=== PATIENT | female | born 1965 | race Caucasian/White ===

== ENCOUNTER → 2018-06-06 15:43 | Outpatient (CLI) | payer BC, SELFPAY ==
--- NOTE | 2018-06-06 15:48 | MR_ITS ---
MR lumbar spine wo con, MR 3-d myelogram/MRCP HISTORY: Bilateral leg pain, RT foot numbness. PT states 2 prior back surgeries. , Lumbar disc herniation ITS.REASON: LUMBAR DISC HERNIATION ORDERING PHYSICIAN: Gela Rice PATIENT AGE: 52 years Comparison: None TECHNIQUE: Standard multiplanar multiecho sequences are performed without contrast. 3-D MIP and myelographic images are also rendered and reviewed FINDINGS: There is normal alignment. The spinal cord ends at the L1-L2 level. T12-L1, L1-L2, L2-L3, L3-L4, and L4-L5 have an unremarkable appearance. L5-S1: Degenerative disc disease with type II endplate changes with concentric bulging disc along with mild facet and ligamentum flavum hypertrophy with mild bilateral lateral recess and foraminal narrowing. No disc herniation or canal stenosis. Numerous bilateral renal cysts of varying size consistent with adult polycystic kidney disease. There is some scattered decreased T2 signal within the kidneys bilaterally could be related to some underlying hemorrhage within the cysts IMPRESSION: 1. Mild degenerative disc disease with bulging disc along with mild facet ligamentous hypertrophy and mild bilateral lateral recess and foraminal narrowing at L5-S1. No disc herniation or canal stenosis 2. Adult polycystic kidney disease
== END ==
PROVIDERS: PCP Nurse Practitioner; Visit Provider Nurse Practitioner
DX: R20.8 Other disturbances of skin sensation (principal); M51.26 Other intervertebral disc displacement, lumbar region; M51.16 Intervertebral disc disorders with radiculopathy, lumbar region
CPT/HCPCS: 72148; 76376

== ENCOUNTER → 2019-04-08 09:55 | Outpatient (CLI) | payer BC, SELFPAY ==
--- NOTE | 2019-04-08 09:59 | CA_ITS ---
PROCEDURE: 2-D M-mode and color Doppler study INDICATIONS FOR THE TEST: Chest pain COPD Heart Murmur Tobacco Smoking Palpitations FatigueX Syncope Edema HypertensionXDiabetes Mellitus Rheumatic Fever SOB SILVESTRE Obesity Hyperlipidemia Family History HD Additional History ? HEPATIC CYSTS SEEN ON SUB COSTAL VIEWS PATIENT INFORMATION HEIGHT: 64 WEIGHT:159 GENDER: Female B/P:140/80 2-D/M-MODE INTERPRETATION: 2-D MEASUREMENTS OBSERVED VALUES IN CMS Right Ventricular Dimension (RVDd) 1.3 Interventricular Septum (Thickness)(IVsd) .7 Left Ventricular Internal Dimensions(LVIDd) 4.8 Left Ventricular Posterior Wall (Thickness)(LVPWd) .7 Aortic Root 2.9 Aortic Cusp Separation 1.8 Left Atrial Dimensions (LAD) 2.3 2D 1. Left atrium is normal size, left ventricle is normal size, there is no concentric left ventricular hypertrophy, visually estimated ejection fraction 55% with no regional wall motion abnormality. 2. The right atrium and right ventricle are normal size and contractility. 3. The aortic, mitral and tricuspid valve are grossly normal. 4. The pulmonic valve is poorly visualized 5. No significant pericardial effusion noted. DOPPLER INTERROGATION: Doppler interrogation of the aortic, mitral and tricuspid valvular presence of mild mitral and tricuspid regurgitation, tricuspid regurgitation jet velocity is inadequate for calculation of the right ventricular systolic pressure, diastolic parameters are within normal range. CONCLUSION: 1. Normal left ventricular size, preserved left ventricular systolic function, visually estimated ejection fraction 55% with no regional wall motion abnormality, diastolic parameters are within normal range. 2. Mild mitral and tricuspid regurgitation 3. No significant pericardial effusion noted.
== END ==
PROVIDERS: PCP Family Medicine; Visit Provider Nurse Practitioner
DX: I10 Essential (primary) hypertension (principal); R53.83 Other fatigue
CPT/HCPCS: 93017; 93306

== ENCOUNTER → 2019-07-07 15:02 | Outpatient (CLI) | payer BC, SELFPAY ==
--- NOTE | 2019-07-07 15:03 | CT_ITS ---
PROCEDURE: CT HEART W CALCIUM SCORE CLINICAL HISTORY: screening COMPARISON: No exams were available for comparison TECHNIQUE: Axial images obtained with sagittal and coronal reformats. All CT scans at the facility use one or more dose reduction, viz: automated exposure control, ma/kV adjustment per patient size (including targeted exams where dose is matched to indication, i.e. head), or iterative reconstruction technique. FINDINGS: Coronary artery calcium score is 0 indicating no identifiable calcific atherosclerotic plaque with a very low cardiovascular disease risk. Incidental findings include multiple varying sized cyst with enlarged kidneys as well as multiple hepatic cysts consistent with adult polycystic kidney disease. Are 2 areas of hyperdensity involving the left left kidney in the mid aspect and superior aspect. IMPRESSION: 1. No identifiable atherosclerotic calcific plaque with very low cardiovascular disease risk 2. Adult polycystic kidney disease with a hepatic cysts Dictated by: Georgi Cartwright MD 07/09/2019 03:57 Electronically signed by Georgi Cartwright MD in [place] 07/09/2019 03:57
== END ==
PROVIDERS: PCP Nurse Practitioner; Visit Provider Internal Medicine Cardiovascular Disease
DX: Z13.6 Encounter for screening for cardiovascular disorders (principal); I10 Essential (primary) hypertension; Q61.3 Polycystic kidney, unspecified; R00.1 Bradycardia, unspecified; Z87.891 Personal history of nicotine dependence
CPT/HCPCS: 75571; 95806

== ENCOUNTER → 2019-07-09 07:30 | Outpatient (CLI) | payer BC, SELFPAY ==
[2019-07-09 08:36] LABS: Anion Gap 13.9 mEq/L (5-15); Blood Urea Nitrogen 24 mg/dL (7-18); Calcium 8.4 mg/dL (8.5-10.1); Carbon Dioxide 26 mmol/L (21.0-32.0); Chloride 101 mmol/L (98-107); Creatinine,Serum 1.06 mg/dL (0.55-1.02); Estimated Glomerular Filt Rate 54 ml/min (>60); GFR (African American) 66 ML/MIN (>60); Glucose 103 mg/dL (74-106); Potassium 4.9 mmoL/L (3.5-5.1); Sodium 136 mmol/L (136-145)
== END ==
PROVIDERS: Visit Provider Internal Medicine Cardiovascular Disease
DX: Q61.3 Polycystic kidney, unspecified (principal); I10 Essential (primary) hypertension; R00.1 Bradycardia, unspecified; Z87.891 Personal history of nicotine dependence
CPT/HCPCS: 36415; 80048

== ENCOUNTER → 2020-01-29 12:20 | Outpatient (CLI) | payer BC, SELFPAY ==
[2020-01-29 15:25] LABS: Alanine Aminotransferase 32 U/L (12-78); Albumin Level 4.5 g/dl (3.5-5.0); Alkaline Phosphatase 60 U/L (38-126); Aspartate Amino Transferase 34 U/L (14-36); Bilirubin,Indirect 0.3 mg/dL (0.0-0.9); Bilirubin,Total 0.3 mg/dl (0.2-1.3); Bilirubin,Unconjugated 0.4 mg/dL (0.0-1.1); Cholesterol 184 mg/dl (140-200); HDL Cholesterol 93 mg/dl (40-60); Total Protein,Serum 7.4 g/dl (6.3-8.2); Triglycerides 242 mg/dl (30-150); VLDL Cholesterol 48 mg/dL (0-40)
[2020-01-29 15:36] LABS: Direct LDL Cholesterol 96.32 mg/dL (100-129)
== END ==
PROVIDERS: Visit Provider Internal Medicine Cardiovascular Disease
DX: I10 Essential (primary) hypertension (principal); Z13.220 Encounter for screening for lipoid disorders
CPT/HCPCS: 36415; 80061; 80076

== ENCOUNTER → 2020-12-26 10:26 | Outpatient (CLI) | payer BC, SELFPAY ==
[2020-12-26 11:43] LABS: Coronavirus 19 IgG Antibody Positive (Negative); Coronavirus 19 IgM Antibody Negative (Negative)
== END ==
PROVIDERS: Visit Provider Surgery
DX: Z01.812 Encounter for preprocedural laboratory examination (principal); Z20.822 Contact with and (suspected) exposure to COVID-19; Z12.11 Encounter for screening for malignant neoplasm of colon
CPT/HCPCS: 36415; 86328

== ENCOUNTER 2020-12-28 08:06 | Day surgery (SDC) | payer BC, SELFPAY ==
--- NOTE | 2020-12-27 08:28 | SUR.PREOP ---
patient notified of time change
[2020-12-28 08:19] VITALS: BP 139/90; PULSE 108; RESP 18; TEMP 36.4; O2SAT 100
--- NOTE | 2020-12-28 08:35 | HMH.ANESCL ---
[facility] Anesthesia Checklist - Patient Identification Patient Identification: Arm Band - Structural Data Admitted From: Home Planned Operative Procedure/s: colonoscopy Consent for Planned Operative Procedure(s) Verified: Yes Verified Documents: Surgical Consent, History and Physical - NPO Status Verified Time NPO: 00:00 - Additional verifications Anesthesia Reactions: No - Airway Assessment C-Spine Mobility Assessed: Yes (mp2) TMJ Mobility Assessed: Yes Dentition: Good Dentition - Neurological Assessment Level of Consciousness: Awake, Alert - Anesthesia Plan Anesthesia Risk discussed: Yes Anesthesia Plan: Verified ASA Class: II Anesthesia Type: MAC [facility] History I have reviewed the patient's past medical history: Yes Medical History: Reports:: Hypertension, Renal Disease Denies:: Cancer, Diabetes Mellitus Type 1, Diabetes Mellitus Type 2, Internal Pacemaker, MRSA, Seizures *Have you ever received a pneumonia vaccine?: No *Have you received a flu vaccine this season?: Yes Other Medical History: Reports: Thyroid Disease Anesthesia experience/problems:: nac Other Surgeries: Yes: Hysterectomy-Total, Tubal Ligation. No: Pacemaker Amputation: No Fractures: No - *Social History Last grade of school completed: High school graduate Smoking Status: Never smoker Alcohol Intake: current Alcohol Intake Frequency:: holidays/special occasions only Substance Use Type: denies use *Occupational Status:: employed Housing: house Household Members: spouse *Travel in the last 8 weeks: None Family Hx:: No significant family history
[2020-12-28 08:39] VITALS: O2SAT 97
[2020-12-28 09:02] VITALS: BP 116/67; PULSE 74; RESP 18; TEMP 36.3; O2SAT 98
--- NOTE | 2020-12-28 09:03 | HMH.SCOPE ---
- Procedure: Date: 12/28/20 Patient Date of :: 1965 Procedure Performed:: Total colonoscopy to terminal ileum with biopsy Indications:: Patient Is a very pleasant 55-year-old female referred by Dr. Raji Duggan for initial screening colonoscopy. Her primary care provider is Fabiano Burt MD. She is without complaints. No rectal bleeding. No family history of colon cancer. Performing Provider:: Georgi Caballero MD Referring Provider:: MD Fabiano Jenkins MD Sedation:: MAC sedation Procedure:: Patient was taken to endoscopy procedure room. She was positioned in lateral decubitus position. Adequate intravenous sedation was achieved with anesthesia titration of propofol. Variable stiffness Olympus colonoscope was inserted via the anus. It was advanced to the cecum. Colonic preparation was good. Ileocecal valve and appendiceal orifice were clearly identified. Colonoscope was advanced a short distance into the terminal ileum which appeared grossly normal. Within the cecum there was a small focal area of prominent erythematous mucosa. Likely inconsequential. However this was biopsied and removed in its entirety and sent as cecal biopsy. Colonoscope was withdrawn through the remainder of the colon with careful surveillance. Within the rectum retroflexion was performed. She had internal anal papillae but no polyp lesions. No significant pathologic internal hemorrhoids. Colonoscope was withdrawn. Findings:: Focal erythematous cecal lesion . Recommendations:: Likely repeat colonoscopy 5 years. Complications:: None immediately apparent Estimated blood obtained (mL): 3
[2020-12-28 09:12] VITALS: BP 133/86; PULSE 77; RESP 18; O2SAT 98
[2020-12-28 09:22] VITALS: BP 118/71; PULSE 76; RESP 18; O2SAT 98
[2020-12-28 09:32] VITALS: BP 123/84; PULSE 78; RESP 20; O2SAT 99
== END 2020-12-28 09:32 | disposition home or self-care (01) ==
LOC: OUTP 08:07
PROVIDERS: PCP Family Medicine; Visit Provider Surgery
PROC: 0DJD8ZZ Inspection of Lower Intestinal Tract, Via Natural or Artificial Opening Endoscopic (ICD-10-PCS; CPT 45380; principal; 2020-12-28 09:30)
DX: Z12.11 Encounter for screening for malignant neoplasm of colon (principal); K63.9 Disease of intestine, unspecified; I10 Essential (primary) hypertension; N28.9 Disorder of kidney and ureter, unspecified; E07.9 Disorder of thyroid, unspecified; Z79.890 Hormone replacement therapy; Z79.899 Other long term (current) drug therapy
CPT/HCPCS: 45380

== ENCOUNTER → 2021-11-17 14:40 | Outpatient (POV) | payer OTHER, SELFPAY | PROVIDERS: Visit Provider Internal Medicine Nephrology | DX: Z00.00 Encounter for general adult medical examination without abnormal findings (principal) ==

== ENCOUNTER → 2021-12-29 09:34 | Outpatient (CLI) | payer OTHER, SELFPAY ==
[2021-12-29 09:40] LABS: Microscopic, Urine URINE MICROSCOPIC (MICROSCOPIC)
[2021-12-29 09:54] LABS: Hematocrit 42.7 % (37.0-47.0); Mean Corpuscular HGB Conc 32.7 g/dL (31.8-35.4); Mean Corpuscular Hemoglobin 32.8 pg (27.0-31.2); Mean Corpuscular Volume 100.5 fl (81-99); Platelet Count 234 K/mm3 (142-424); Red Blood Count 4.25 M/mm3 (4.20-5.40); Red Cell Distribution Width 13.1 % (11.5-17.5)
[2021-12-29 11:10] LABS: Alanine Aminotransferase 33 U/L (12-78); Albumin Level 4.5 g/dl (3.5-5.0); Albumin/Globulin Ratio 1.6 (1.1-1.8); Alkaline Phosphatase 57 U/L (38-126); Anion Gap 15.1 mEq/L (5-15); Aspartate Amino Transferase 33 U/L (14-36); Bilirubin,Total 0.7 mg/dl (0.2-1.3); Blood Urea Nitrogen 43 mg/dl (7-17); Calcium 9.1 mg/dl (8.4-10.2); Carbon Dioxide 23 mmol/L (22.0-30.0); Chloride 101 mmol/L (98-107); Estimated Glomerular Filt Rate 46 ml/min (>60); GFR (African American) 56 ML/MIN (>60); Globulin 2.9 g/dL (1.3-3.2); Glucose 100 mg/dl (74-100); Potassium 4.1 mmoL/L (3.5-5.1); Sodium 135 mmol/L (136-145); Total Protein,Serum 7.4 g/dl (6.3-8.2); Uric Acid 9.3 mg/dl (2.5-6.2)
[2021-12-29 13:08] LABS: Appearance,Urine CLEAR (Clear); Bilirubin,Urine Negative (Negative); Blood, Urine Negative (Negative); Color,Urine YELLOW (Yellow); Glucose,Urine (UA) Negative (Negative); Ketones,Urine Negative (Negative); Leukocyte Esterase,Urine Negative (Negative); Nitrate,Urine Negative (Negative); Protein,Urine Negative (Negative); Specific Gravity, Urine 1.015 (1.005-1.030); Urobilinogen,Urine 0.2 EU/dl (0.2)
[2021-12-29 13:46] LABS: Bacteria,Urine Trace /lpf; WBC,Urine Occasional #/hpf (0-3)
== END ==
PROVIDERS: PCP Family Medicine; Visit Provider Internal Medicine Nephrology
DX: N17.9 Acute kidney failure, unspecified (principal); I09.81 Rheumatic heart failure
CPT/HCPCS: 36415; 80053; 81001; 84550; 85014; 85018; 85048; 85049

== ENCOUNTER → 2022-01-12 13:11 | Outpatient (POV) | payer OTHER, SELFPAY | PROVIDERS: Visit Provider Internal Medicine Nephrology | DX: Z00.00 Encounter for general adult medical examination without abnormal findings (principal) ==

== ENCOUNTER → 2023-05-28 15:58 | Outpatient (CLI) | payer OTHER, SELFPAY ==
[2023-05-28 11:13] LABS: Cholesterol 208 mg/dl (140-200); HDL Cholesterol 105 mg/dl (40-60); Triglycerides 227 mg/dl (30-150); VLDL Cholesterol 45 mg/dL (0-40)
[2023-05-28 11:24] LABS: Direct LDL Cholesterol 79.01 mg/dL (100-129)
[2023-05-28 11:31] LABS: T4 (Thyroxine) 14.2 ug/dl (5.53-11.0)
[2023-05-28 11:44] LABS: Thyroid Stimulating Hormone 0.61 uIU/mL (0.465-4.68)
== END ==
PROVIDERS: PCP Nurse Practitioner Family; Visit Provider Nurse Practitioner Family
DX: E03.9 Hypothyroidism, unspecified (principal); I10 Essential (primary) hypertension
CPT/HCPCS: 80061; 84436; 84443; 84481